=== PATIENT | female | born 1930 | race Caucasian/White ===

== ENCOUNTER 2018-04-03 00:42 | Emergency (ER) | payer OTHER ==
[~2018-04-03] VITALS: Ht 160 cm; Wt 90.7 kg
[2018-04-03] MEDS ORDERED: METFORMIN HCL500 MG PO (01:00)
[2018-04-03] MEDS ORDERED: ELIQUIS2.5 MG PO (01:02)
[2018-04-03] MEDS ORDERED: HYDRALAZINE 2525 M1 PO (01:02)
[2018-04-03] MEDS ORDERED: GLUCOTROL5 MG PO (01:06)
[2018-04-03 01:43] LABS: ABSOLUTE BASOPHILS 0.1 thou/uL (0.0-0.2); ABSOLUTE EOSINOPHILS 0.1 thou/uL (0.0-0.7); ABSOLUTE LYMPHOCYTES 1.4 thou/uL (0.8-5.3); ABSOLUTE MONOCYTES 0.8 thou/uL (0.0-1.2); ABSOLUTE NEUTROPHILS 4.2 thou/uL (1.6-8.1); HEMATOCRIT 34.2 % (37.0-47.0); LYMPHOCYTES 21.7 %; MCH 27.3 pg (26.0-34.0); MCHC 32.2 g/dL (28.0-37.0); MCV 84.6 fL (80.0-100.0); MONOCYTES 12.1 %; NUCLEATED RBCS 0 /100WBC; PLATELET COUNT* 170 thou/uL (150-400); POLYS 63.2 %; RBC 4.04 mil/uL (4.20-5.00); RDW-CV 16.1 % (10.5-14.5); WBC 6.6 thou/uL (4.0-11.0)
[2018-04-03 02:07] LABS: CALCIUM 9.1 mg/dL (8.5-10.1); CREATININE 1.2 mg/dL (0.6-1.3); POTASSIUM 4.4 mmol/L (3.5-5.1)
[2018-04-03 02:11] LABS: ALBUMIN 3.8 g/dL (3.4-5.0); MAGNESIUM 2.1 mg/dL (1.8-2.4); TOTAL PROTEIN 6.9 g/dL (6.4-8.2)
[2018-04-03] MEDS ORDERED: ZPAK PO (02:24)
[2018-04-03] MEDS ORDERED: PROMETHAZINE-P118 M1 PO (02:24)
[2018-04-03 02:39] VITALS: BP 126/66
== END 2018-04-03 02:39 | disposition home or self-care (01) ==
LOC: M.ERS 00:42
PROVIDERS: Personal Emergency Response Attendant
DX: J18.9 Pneumonia, unspecified organism (principal); Z90.13 Acquired absence of bilateral breasts and nipples; Z90.710 Acquired absence of both cervix and uterus; Z90.49 Acquired absence of other specified parts of digestive tract; Z96.651 Presence of right artificial knee joint; Z88.0 Allergy status to penicillin; Z88.2 Allergy status to sulfonamides

== ENCOUNTER 2018-04-09 14:49 | Emergency (ER) | payer OTHER ==
[~2018-04-09] VITALS: Ht 160 cm; Wt 90.7 kg
[~2018-04-09 14:49] MED LIST: ELIQUIS2.5 MG PO; GLUCOTROL5 MG PO; HYDRALAZINE 2525 M1 PO; METFORMIN HCL500 MG PO; PROMETHAZINE-P118 M1 PO; ZPAK PO
[2018-04-09] MEDS ORDERED: TESSALON PERLE100 MG PO (17:06)
[2018-04-09 17:15] VITALS: BP 151/62
== END 2018-04-09 17:15 | disposition home or self-care (01) ==
LOC: M.ERS 14:49
DX: R05 Cough (principal); Z88.0 Allergy status to penicillin; Z88.2 Allergy status to sulfonamides; Z90.710 Acquired absence of both cervix and uterus; Z90.49 Acquired absence of other specified parts of digestive tract; Z96.651 Presence of right artificial knee joint

== ENCOUNTER 2018-10-24 21:45 | Inpatient (IN) | payer OTHER ==
[~2018-10-24] VITALS: Ht 160 cm; Wt 93.4 kg
[~2018-10-24 21:45] MED LIST changes: +TESSALON PERLE100 MG PO
[2018-10-24 21:59] VITALS: BP 167/54
[2018-10-24] MEDS ORDERED: COZAAR 25 MG TA25 MG PO (22:13)
[2018-10-24] MEDS ORDERED: TORSEMIDE5 MG PO (22:13)
[2018-10-24] MEDS ORDERED: JANUVIA25 MG PO (22:15)
[2018-10-24 22:50] LABS: ABSOLUTE BASOPHILS 0.1 thou/uL (0.0-0.2); ABSOLUTE EOSINOPHILS 0.1 thou/uL (0.0-0.7); ABSOLUTE LYMPHOCYTES 1.2 thou/uL (0.8-5.3); ABSOLUTE MONOCYTES 0.7 thou/uL (0.0-1.2); ABSOLUTE NEUTROPHILS 2.6 thou/uL (1.6-8.1); BASOPHILS 1.3 %; EOSINOPHILS 1.7 %; HEMATOCRIT 31.1 % (37.0-47.0); HEMOGLOBIN 10.1 gm/dL (12.0-15.0); LYMPHOCYTES 26.7 %; MCH 26.3 pg (26.0-34.0); MCHC 32.6 g/dL (28.0-37.0); MCV 80.6 fL (80.0-100.0); MONOCYTES 14.2 %; MPV 9.8 fl. (7.2-11.1); NUCLEATED RBCS 0 /100WBC; PLATELET COUNT* 157 thou/uL (150-400); POLYS 56.1 %; RBC 3.85 mil/uL (4.20-5.00); RDW-CV 16.3 % (10.5-14.5); WBC 4.6 thou/uL (4.0-11.0)
[2018-10-24 22:57] LABS: ANION GAP 9 mmol/L (7-16); BUN 37 mg/dL (7-18); CALCIUM 8.7 mg/dL (8.5-10.1); CHLORIDE 105 mmol/L (98-107); CO2 25 mmol/L (21-32); CREATININE 1.5 mg/dL (0.6-1.3); GLUCOSE 291 mg/dL (70-99); POTASSIUM 4.8 mmol/L (3.5-5.1); SODIUM 139 mmol/L (136-145)
[2018-10-24 23:01] LABS: PROTIME 10.6 Seconds (9.20-11.50)
[2018-10-24 23:07] LABS: URINE BILIRUBIN NEGATIVE (Negative); URINE BLOOD NEGATIVE (Negative); URINE CLARITY CLEAR; URINE COLOR YELLOW; URINE GLUCOSE-RANDOM 2+ (Negative); URINE KETONES NEGATIVE (Negative); URINE LEUKOCYTES-REFLEX NEGATIVE (Negative); URINE NITRITE-REFLEX NEGATIVE (Negative); URINE PROTEIN NEGATIVE (Negative); URINE UROBILINOGEN 0.2 E.U./dl (0.2-1.0)
[2018-10-24 23:08] LABS: ALBUMIN 3.3 g/dL (3.4-5.0); ALKALINE PHOSPHATASE 98 U/L (46-116); NT-PRO BRAIN NAT PEPTIDE 1089 pg/mL (<300); SGOT 21 U/L (15-37); SGPT 26 U/L (30-65); TOTAL BILIRUBIN 0.6 mg/dL (<0.1-1.0); TOTAL PROTEIN 6.5 g/dL (6.4-8.2); TROPONIN-I LEVEL <0.06 ng/mL (<0.06)
[2018-10-25] VITALS (7 sets, daily range): BP systolic 129–170; BP diastolic 47–69
--- NOTE | 2018-10-25 02:22 | NUR ---
TRANSFER FROM ED RECIEVED REPORT AND ASSUMED CARE AT 0130. SENIOR CLINICIAN IN PLACE. SYSTOLIC BP SLIGHTLY ELEVATED, OTHER THAN THAT VITAL SIGNS STABLE. PT IS UP ADLIB. SHE DENIES ANY PAIN AT THIS TIME. ASSESSMENT COMPLETED DISCUSSED PLAN OF CARE AND PT UNDERSTANDS. BED LOCKED AND CALL LIGHT WITHIN REACH. FALL PRECAUTIONS IN PLACE. HOURLY ROUNDING DONE AND ALL NEEDS MET. NURSING WILL CONTINUE TO MONITOR.
--- NOTE | 2018-10-25 07:15 | NUR ---
CHANGE OF SHIFT, BEDSIDE REPORT GIVEN PATIENT SEEN AT BEDSIDE, IN BED ASLEEP ASSUMED PATIENT CARE
[2018-10-25] MEDS ORDERED: LOPRESSOR50 PO (10:36)
[2018-10-25] MEDS ORDERED: FLECAINIDE ACET50 M1 PO (10:38)
[2018-10-25] MEDS ORDERED: UNICOMPLEX M TA1 TA1 PO (10:42)
[2018-10-25] MEDS ORDERED: EMERGEN-C 500500 MG PO (10:44)
--- NOTE | 2018-10-25 10:44 | NUR ---
Pt is A&O. Resides with her at [facility]. Independent, meals and house cleaning are provided. Pt has a walker and RW. Hx of [facility] post stroke. No hx of SNF. Supportive family. Hx of acute rehab at [facility]. Goal [facility].
[2018-10-25] MEDS ORDERED: PRILOSEC 20 MG20 MG PO (10:46)
[2018-10-25] MEDS ORDERED: PRAVACHOL20 MG PO (10:50)
[2018-10-25 14:11] LABS: ALBUMIN 3.2 g/dL (3.4-5.0); CALCIUM 8.6 mg/dL (8.5-10.1); CREATININE 1.4 mg/dL (0.6-1.3); POTASSIUM 4.7 mmol/L (3.5-5.1); TOTAL BILIRUBIN 0.6 mg/dL (<0.1-1.0); TOTAL PROTEIN 6.3 g/dL (6.4-8.2)
--- NOTE | 2018-10-25 14:46 | EKG ---
[place] [address] ELECTROCARDIOGRAM REPORT Name: ROSS LEDESMA Room: [address] ADM IN [facility].#: [id number] Admission: 10/25/18 Attend Phys: Juvencio Marquez MD Discharge: Date of : 34 Report #: [id number] THIS REPORT FOR: //name// [facility] ED Test Date: 2018-10-24 Test Time: 22:50:42 Pat Name: ROSS LEDESMA Department: Room: [facility] Gender: F Business Initiatives Manager: Dmitri RESTREPO : 1930 Requested By: Amy Irvin Order Number: [id number] MD: Riccardo Doshi Measurements Intervals [place] Rate: 70 P: 59 OH: 247 QRS: -24 QRSD: 122 T: 41 QT: 425 QTc: 459 Interpretive Statements Sinus rhythm Atrial premature complex Prolonged OH interval Left bundle branch block Baseline wander in lead(s) I,II,aVR No previous ECG available for comparison Electronically Signed On 10-25-2018 14:46:14 CDT by Riccardo Doshi [email or web address] <ELECTRONICALLY SIGNED> By: Riccardo Doshi MD, FACC 10/25/18 1446 2250 2250 Riccardo Doshi MD, [facility] /EPI
[2018-10-26 00:10] VITALS: BP 154/74
--- NOTE | 2018-10-26 02:53 | NUR ---
PT ALERT, ORIENTED TO SELF. UP WITH STD BY ASSIST. TELEMETRY SB/SA [address] AVB. DENIES PAIN.
[2018-10-26 04:23] VITALS: BP 169/61
[2018-10-26 04:40] LABS: ABSOLUTE BASOPHILS 0.1 thou/uL (0.0-0.2); ABSOLUTE EOSINOPHILS 0.1 thou/uL (0.0-0.7); ABSOLUTE LYMPHOCYTES 1.2 thou/uL (0.8-5.3); ABSOLUTE MONOCYTES 0.4 thou/uL (0.0-1.2); ABSOLUTE NEUTROPHILS 1.9 thou/uL (1.6-8.1); BASOPHILS 1.7 %; EOSINOPHILS 2.3 %; HEMATOCRIT 29.2 % (37.0-47.0); HEMOGLOBIN 9.5 gm/dL (12.0-15.0); LYMPHOCYTES 32.8 %; MCH 26.1 pg (26.0-34.0); MCHC 32.5 g/dL (28.0-37.0); MCV 80.3 fL (80.0-100.0); MONOCYTES 11.4 %; MPV 9.6 fl. (7.2-11.1); NUCLEATED RBCS 0 /100WBC; PLATELET COUNT* 149 thou/uL (150-400); POLYS 51.8 %; RBC 3.64 mil/uL (4.20-5.00); RDW-CV 16.4 % (10.5-14.5); WBC 3.7 thou/uL (4.0-11.0)
[2018-10-26 05:12] LABS: CALCIUM 8.8 mg/dL (8.5-10.1); CREATININE 1.3 mg/dL (0.6-1.3); POTASSIUM 4.5 mmol/L (3.5-5.1)
[2018-10-26 05:19] LABS: CHOLESTEROL 132 mg/dL (<200); HDL CHOLESTEROL 66 mg/dL (>40); LDL CHOLESTEROL 49 mg/dL (<100); TRIGLYCERIDE 85 mg/dL (<150); VLDL 17 mg/dL (<40)
[2018-10-26 05:40] LABS: SERUM ASSESSMENT CLEAR
[2018-10-26 07:59] VITALS: BP 112/61
--- NOTE | 2018-10-26 09:26 | NUR ---
ASSUMED CARE OF PT THIS AM AROUND 07- REDUCING MACHINE OPERATOR IN PLACE ORDERED, TRACING SR/SB THIS AM- UPON ASSESSMENT PT NOTED TO BE RESTING IN BED, EYES CLOSED- PT AROUSABLE A&O X2 WITH NOTED CONFUSSION/FORGETFULLNESS- STRESS INCONTINENTS NOTED ON OCCASSION- SBA WITH TRANSFERS FOR SAFETY- LCTA, RESP EVEN AND UN-LABORED- VSS, O2 SAT 94% ON RA- ABD SOFT/ROUND/NON-TENDER, BS X4 QUADS- LAST BM REPORTED ON PRIOR SHIFT-GOOD PO INTAKE NOTED WITH BREAKFAST, BS MONITORED AND CONTROLLED PER ORAL MEDS- IV NOTED TO RIGHT AC INTACT AND SL-3+ LLE EDEMA NOTED, 2+ RLE- PT DENIES ANY C/O PAIN/DISCOMFORT AT THIS TIME- CALL LIGHT AND PERSONAL BELONGINGS WITH IN REACH- HOURLY ROUNDS IN PLACE R/T SAFETY/NEEDS- ALL NEEDS MET AT THIS TIME-WCTM
[2018-10-26 10:20] VITALS: BP 112/61
[2018-10-26 11:58] VITALS: BP 115/72
[2018-10-26 12:05] LABS: GLYCOHEMOGLOBIN (HGB A1C) 6.1 % (4.8-5.6)
--- NOTE | 2018-10-26 13:34 | NUR ---
ORDERS RECIEVIED FOR OKAY TO D/C PT TO HOME THIS SHIFT PER - NEUROLOGY NOTED TO ORDERED EEG THAT WAS COMPLETED AND READ PER WITH NOTES INDICATING NEUROLOGY SIGNED OFF- IV TO RIGHT AC D/C'D ALONG WITH ONCOLOGY REP PRIOR TO D/C- D/C EDUCATION/TEACHING/NEEDED FOLLOW UP'S COMMUNICATED TO PT AND WITH VERBAL UNDERSTANDING RECIEVIED PER - ALL QUESTIONS AND CONCERNS ADDRESSED PRIOR TO D/C- BELONGINGS PACKED AND ACCOUNTED FOR PER - PT ESCORTED TO VEHICLE PER TECH VIA W/C WITH BELONGINGS AT 1335- NO PROBLEMS TO NOTE AT TIME OF D/C
--- NOTE | 2018-10-26 17:19 | NUR ---
PT. DISCHARGED TO HOME PRIOR TO O.T. EVAL. PLEASE ORDER FURTHER O.T. SERVICES IF NEEDED.
--- NOTE | 2018-10-28 12:43 | CON ---
[address] [address] CONSULTATION Name: ROSS LEDESMA Room: [address] IN .R.#: [id number] Admission: 10/25/18 Attend Phys: Juvencio Marquez MD Discharge: 10/26/18 Date of : 34 Report #: [id number] THIS REPORT FOR: //name// CC: Juvencio Palafox TYPE OF REPORT: Neurology consultation. HISTORY OF PRESENT ILLNESS: The patient is an 88-year-old female with a prior history of stroke affecting primarily her speech. The day of admission, the patient became less talkative and seemed generally weak. Her went to breakfast to bring her back her breakfast. She had no difficulty eating it. In fact after breakfast, they went to see a family member and she had no difficulty getting into the truck. The patient has a prior history of stroke that has affected her speech, although it has improved quite a bit. However, she calls family members and even the dogs "the kids." Her takes care of her. He also monitors her blood sugar. Last year at one point, her hemoglobin A1c was above 9. He seriously began to monitor her blood sugar and it dropped to as low as hemoglobin A1c of 6. He does admit to not being as careful with her blood sugar as he had been. PAST MEDICAL HISTORY: Diabetes, which she has had for over 20 years, hypertension, gastroesophageal reflux, hyperlipidemia and breast cancer with lymphedema in the left upper extremity. PAST SURGICAL HISTORY: Bilateral mastectomy, right knee replacement, hysterectomy and cholecystectomy. MEDICATIONS: Metformin 1000 mg daily, hydralazine 25 mg 6 times a day, Eliquis 2.5 mg b.i.d., glipizide 5 mg daily, Cozaar 100 mg at bedtime, torsemide 5 mg daily and Januvia 25 mg daily. ALLERGIES: PENICILLIN and SULFA. PHYSICAL EXAMINATION: VITAL SIGNS: Temperature 36.2, pulse rate 59, respiratory rate 18, blood pressure 112/61 with an admission blood pressure of 167/54 and bedside pulse oximetry 94% on room air. NEUROLOGICAL: Cranial nerves 2 through 12 are grossly intact. Motor exam demonstrates symmetrical strength in all 4 extremities with tone and bulk normal. Reflexes are trace throughout. Plantar responses are flexor. Coordination reveals intact [id number]. Gait was not tested, although the patient had no difficulty walking from the bathroom to the chair. Sensory exam was intact to light touch. Proprioception was intact for the most part. LABORATORY DATA: White blood cell count 3.7; hemoglobin 9.5; hematocrit 29.2; [place] [address] CONSULTATION Name: ROSS LEDESMA Room: [address] IN ..#: [id number] Admission: 10/25/18 Attend Phys: Juvencio Marquez MD Discharge: 10/26/18 Date of : 34 Report #: [id number] MCV 80.3 and platelet count 149,000. INR of 1. Urinalysis, 2+ glucose. Chemistry: Sodium 142, potassium 4.5, chloride 107, carbon dioxide 28, BUN 28, creatinine 1.3 and glucose 180. Hemoglobin A1c pending. Liver functions unremarkable. IMAGING DATA: MRI of the head demonstrates a large infarct within the left parietal occipital region and [id number] microvascular disease. There is no evidence of acute stroke. IMPRESSION: This patient has had an episode of possible confusion. I explained to her that when she came to the hospital, her blood sugar was 286. Given that she has an old stroke, elevated blood sugars can make an old stroke more obvious. PLAN: I have ordered an EEG prior to discharge to make sure the patient does not have a seizure. 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 If there is no significant epileptiform activity, the patient can be discharged. I would recommend blood sugar control and I suggested to her that he speak with the primary care provider to determine when the blood sugars should be checked rather than trying to handle this himself. <ELECTRONICALLY SIGNED> By: Rin Nick DO 10/28/18 1243 1058 013Jo Nick DO /nt
--- NOTE | 2018-10-29 16:31 | CON ---
[address] [address] CONSULTATION Name: ROSS LEDESMA Room: [address] IN M.R.#: [id number] Admission: 10/25/18 Attend Phys: Juvencio Marquez MD Discharge: 10/26/18 Date of : 34 Report #: [id number] THIS REPORT FOR: //name// CC: Juvencio Palafox DATE OF SERVICE: 10/25/2018 HISTORY OF PRESENT ILLNESS: This is an 88-year-old female patient who was evaluated by me for an episode. The episode is poorly defined. The patient is a diabetic. She started mumbling something. She was not herself according to the . She was profoundly weak. History is complicated. The patient has a history of stroke in the past. Her memory is extremely poor since the stroke, so it becomes difficult how many symptoms were new and how many were old. No tonic-clonic activity was noticed. She is back to her baseline. REVIEW OF SYSTEMS: Indicate that she had a stroke in the past. That affected her speech and memory. She is a diabetic. She is hypertensive. She had hysterectomy, knee replacement, history is difficult because the patient has memory disturbances and aphasia. But the best I can tell, she is not complaining of any new cardiac, respiratory, GI, , musculoskeletal, constitutional, dermatological, hematological, psychiatric, throat, allergic symptom associated with present symptomatology. PAST MEDICAL HISTORY: Positive for stroke. FAMILY HISTORY: Unremarkable. SOCIAL HISTORY: She lives with her . PHYSICAL EXAMINATION: Indicate she is alert, she is responsive. She does not know what month it is. She does not know what day it is. Her memory is extremely poor. She is difficult to examine. I cannot tell about the visual field. She is able to move her all 4 extremities and in fact she is able to walk. She said she feel pinprick on both sides. Tone is symmetrical. It is difficult to tell about cerebellar sign. She could not cooperate with the fundus examination. Cardiac examinations appear noncontributory. No respiratory difficulty or rhonchi was noticed. There is no meningeal sign in this patient. Prior workup is not available. LABORATORY DATA: Her white count is 4.6. CT was reviewed. It showed old stroke. IMPRESSION: It is very difficult to determine what [place] [address] CONSULTATION Name: ROSS LEDESMA Room: [address]#: [id number] Admission: 10/25/18 Attend Phys: Juvencio Marquez MD Discharge: 10/26/18 Date of : 34 Report #: [id number] from. It may be hypoglycemia if we can document it. Seizure from prior stroke is possible, but history is not very typical. Further stroke need to be excluded in this patient. RECOMMENDATIONS: 1. We will get an MRI done in this patient. 2. I will also get an EEG done. 3. Further workup will depend upon the outcome of that testing and how aggressive the family want to be. <ELECTRONICALLY SIGNED> By: Baldo Ovalle MD 10/29/18 1631 [id number] Ovalle MD /nt
== END 2018-10-26 13:45 | disposition home or self-care (01) | DRG 682 ==
LOC: M.ERS 21:45 → M.TBA-ER 10-25 00:20 → M.2W 10-25 00:20 → M.ERS 10-25 01:13 → M.2W 10-25 01:16
PROVIDERS: Emergency Medicine; ADMIT Internal Medicine
DX: N17.9 Acute kidney failure, unspecified (principal); G93.41 Metabolic encephalopathy; I48.91 Unspecified atrial fibrillation; Z96.653 Presence of artificial knee joint, bilateral; F03.90 Unspecified dementia, unspecified severity, without behavioral disturbance, psychotic disturbance, mood disturbance, and anxiety; K21.9 Gastro-esophageal reflux disease without esophagitis; E78.5 Hyperlipidemia, unspecified; I10 Essential (primary) hypertension; Z79.01 Long term (current) use of anticoagulants; Z90.13 Acquired absence of bilateral breasts and nipples; Z90.710 Acquired absence of both cervix and uterus; Z90.49 Acquired absence of other specified parts of digestive tract; Z86.73 Personal history of transient ischemic attack (TIA), and cerebral infarction without residual deficits; Z88.0 Allergy status to penicillin; Z88.2 Allergy status to sulfonamides; Z85.3 Personal history of malignant neoplasm of breast

== ENCOUNTER 2020-10-25 08:49 | Emergency (ER) | payer OTHER ==
[~2020-10-25] VITALS: Ht 154.9 cm; Wt 88.5 kg
[~2020-10-25 08:49] MED LIST changes: +COZAAR 25 MG TA25 MG PO; +EMERGEN-C 500500 MG PO; +FLECAINIDE ACET50 M1 PO; +JANUVIA25 MG PO; +LOPRESSOR50 PO; +PRAVACHOL20 MG PO; +PRILOSEC 20 MG20 MG PO; +TORSEMIDE5 MG PO; +UNICOMPLEX M TA1 TA1 PO
[2020-10-25] MEDS ORDERED: BASAGLAR K100 UNIT/1 SUBQ (09:05)
[2020-10-25] MEDS ORDERED: ESTER-C 500 MG1 EACH PO (09:06)
[2020-10-25] MEDS ORDERED: FLECAINIDE ACE150 MG PO (09:08)
[2020-10-25] MEDS ORDERED: HUMALOG100 UNIT/1 SUBQ (09:09)
[2020-10-25] MEDS ORDERED: DOLOGEN CAPLET1 EACH PO (09:12)
[2020-10-25] MEDS ORDERED: LOPERAMIDE2 MG PO (09:13)
[2020-10-25] MEDS ORDERED: MILK OF MA400 MG/5 M PO (09:14)
[2020-10-25 09:52] LABS: CALCIUM 8.8 mg/dL (8.5-10.1); CREATININE 2.2 mg/dL (0.6-1.3); POTASSIUM 3.7 mmol/L (3.5-5.1)
[2020-10-25 09:56] LABS: ALBUMIN 3.3 g/dL (3.4-5.0); TOTAL BILIRUBIN 1.1 mg/dL (<0.1-1.0); TOTAL PROTEIN 6.8 g/dL (6.4-8.2)
[2020-10-25 10:01] LABS: ABSOLUTE EOSINOPHILS 0.1 thou/uL (0.0-0.7); ABSOLUTE LYMPHOCYTES 1.4 thou/uL (0.8-5.3); ABSOLUTE MONOCYTES 0.5 thou/uL (0.0-1.2); ABSOLUTE NEUTROPHILS 4.7 thou/uL (1.6-8.1); BASOPHILS 0.5 %; EOSINOPHILS 0.9 %; HEMATOCRIT 36.4 % (37.0-47.0); HEMOGLOBIN 11.9 gm/dL (12.0-15.0); LYMPHOCYTES 20.5 %; MCH 28.7 pg (26.0-34.0); MCHC 32.6 g/dL (28.0-37.0); MCV 88.2 fL (80.0-100.0); MONOCYTES 7.5 %; MPV 10.4 fl. (7.2-11.1); NUCLEATED RBCS 0 /100WBC; PLATELET COUNT* 156 thou/uL (150-400); POLYS 70.6 %; RBC 4.13 mil/uL (4.20-5.00); RDW-CV 16.9 % (10.5-14.5); WBC 6.6 thou/uL (4.0-11.0)
[2020-10-25 10:18] LABS: APTT 26.9 Seconds (25.0-31.3); INR 1.1; PROTIME 11.3 Seconds (9.20-11.50)
[2020-10-25 11:12] VITALS: BP 134/89
--- NOTE | 2020-10-26 10:29 | EKG ---
[place] [address] ELECTROCARDIOGRAM REPORT Name: ROSS LEDESMA Room: [facility]#: [id number] Admission: 10/25/20 Attend Phys: Discharge: 10/25/20 Date of : 34 Date of Service: 10/25/20 0939 Report #: [id number] THIS REPORT FOR: //name// [facility] ED Test Date: 2020-10-25 Test Time: 09:39:35 Pat Name: ROSS LEDESMA Department: Room: Gender: Oracle Analyst: : 1930 Requested By: Ubaldo Pretty Order Number: [id number] MD: Jet Lyman Measurements Intervals [place] Rate: 51 P: -22 ND: 276 QRS: -31 QRSD: 146 T: 32 QT: 587 QTc: 541 Interpretive Statements Sinus rhythm Prolonged ND interval Probable left atrial enlargement Left bundle branch block Compared to ECG 10/24/2018 22:50:42 no change Electronically Signed On 10-26-2020 10:28:49 CDT by Jet Lyman [email or web address] <ELECTRONICALLY SIGNED> By: Jet Lyman MD, [facility] 10/26/20 1028 0939 0939 Jet Lyman MD, [facility] /EPI
== END 2020-10-25 11:14 | disposition home or self-care (01) ==
LOC: M.ERS 08:49
PROVIDERS: Family Medicine
DX: S01.01XA Laceration without foreign body of scalp, initial encounter (principal); F03.90 Unspecified dementia, unspecified severity, without behavioral disturbance, psychotic disturbance, mood disturbance, and anxiety; I10 Essential (primary) hypertension; E11.9 Type 2 diabetes mellitus without complications; Z86.73 Personal history of transient ischemic attack (TIA), and cerebral infarction without residual deficits; Z90.49 Acquired absence of other specified parts of digestive tract; Z90.711 Acquired absence of uterus with remaining cervical stump; Z96.651 Presence of right artificial knee joint; Z90.13 Acquired absence of bilateral breasts and nipples; Z79.899 Other long term (current) drug therapy; Z79.4 Long term (current) use of insulin; Z88.0 Allergy status to penicillin; Z88.2 Allergy status to sulfonamides; W19.XXXA Unspecified fall, initial encounter; Y93.89 Activity, other specified; Y92.128 Other place in nursing home as the place of occurrence of the external cause; Y99.8 Other external cause status

== ENCOUNTER 2020-12-18 07:49 | Emergency (ER) | payer OTHER ==
[~2020-12-18] VITALS: Ht 160 cm; Wt 86.2 kg
[~2020-12-18 07:49] MED LIST changes: +BASAGLAR K100 UNIT/1 SUBQ; +DOLOGEN CAPLET1 EACH PO; +ESTER-C 500 MG1 EACH PO; +FLECAINIDE ACE150 MG PO; +HUMALOG100 UNIT/1 SUBQ; +LOPERAMIDE2 MG PO; +MILK OF MA400 MG/5 M PO
[2020-12-18] MEDS ORDERED: PRAVACHOL 20 MG20 M1 PO (07:59)
[2020-12-18] MEDS ORDERED: HYDROXYZINE HCL25 M2 PO (08:01)
[2020-12-18 12:09] LABS: ABSOLUTE EOSINOPHILS 0.1 thou/uL (0.0-0.7); ABSOLUTE LYMPHOCYTES 1.3 thou/uL (0.8-5.3); ABSOLUTE MONOCYTES 0.6 thou/uL (0.0-1.2); ABSOLUTE NEUTROPHILS 5.3 thou/uL (1.6-8.1); BASOPHILS 0.5 %; EOSINOPHILS 0.8 %; HEMATOCRIT 35.2 % (37.0-47.0); HEMOGLOBIN 11.8 gm/dL (12.0-15.0); LYMPHOCYTES 18.1 %; MCHC 33.4 g/dL (28.0-37.0); MCV 90.1 fL (80.0-100.0); MONOCYTES 8.2 %; MPV 9.7 fl. (7.2-11.1); NUCLEATED RBCS 0 /100WBC; PLATELET COUNT* 135 thou/uL (150-400); POLYS 72.4 %; RBC 3.91 mil/uL (4.20-5.00); RDW-CV 18.4 % (10.5-14.5); WBC 7.3 thou/uL (4.0-11.0)
[2020-12-18 12:17] LABS: CREATININE 1.5 mg/dL (0.6-1.3)
[2020-12-18 12:22] LABS: ALBUMIN 2.9 g/dL (3.4-5.0); TOTAL PROTEIN 6.6 g/dL (6.4-8.2)
[2020-12-18 12:23] LABS: POTASSIUM 5.5 mmol/L (3.5-5.1)
[2020-12-18 12:30] VITALS: BP 151/38
== END 2020-12-18 12:33 | disposition home or self-care (01) ==
LOC: M.ERS 07:49
PROVIDERS: Family Medicine
DX: S00.03XA Contusion of scalp, initial encounter (principal); E11.649 Type 2 diabetes mellitus with hypoglycemia without coma; K21.9 Gastro-esophageal reflux disease without esophagitis; E78.5 Hyperlipidemia, unspecified; I13.10 Hypertensive heart and chronic kidney disease without heart failure, with stage 1 through stage 4 chronic kidney disease, or unspecified chronic kidney disease; E11.22 Type 2 diabetes mellitus with diabetic chronic kidney disease; N18.30 Chronic kidney disease, stage 3 unspecified; Z90.13 Acquired absence of bilateral breasts and nipples; Z90.710 Acquired absence of both cervix and uterus; Z86.73 Personal history of transient ischemic attack (TIA), and cerebral infarction without residual deficits; Z88.0 Allergy status to penicillin; Z88.2 Allergy status to sulfonamides; W18.39XA Other fall on same level, initial encounter; Y93.89 Activity, other specified; Y92.89 Other specified places as the place of occurrence of the external cause; Y99.8 Other external cause status